=== PATIENT | male | born 1980 | race Caucasian/White ===

== ENCOUNTER → 2016-04-21 | Outpatient (CLI) | payer OTHER ==
--- NOTE | 2016-04-21 14:33 | REP ---
MRI LUMBAR SPINE WITHOUT WITH CONTRAST: 04/21/2016 Clinical history: Chronic low back pain. Technique: Sagittal T1, T2 and STIR images and T1 and T2 axial images provided. After infusion of 17 ml as of ProHance, sagittal fat suppressed T1 and axial standard T1 sequences performed. Comparison: I have report from MRI 08/15/[address] [facility]. The images did not come to this facility with the patient for this examination. Findings: The normal lordosis is maintained. Vertebral body heights and marrow signal are normal from at T12-S2. The disc space heights and disc water signal are maintained from T11-12 through L5-S1. Conus terminates in the upper half of L2. The T11-12, T12-L1, L1-2, L2-3 and L3-4 levels show no significant disc bulge or herniation and no spinal or foraminal stenosis. At L4-5, there is no significant disc bulge herniation and no spinal or foraminal stenosis. At L5-S1, there is minimal broad-based disc bulge extending into the foramen on the left more than right, but the cross-sectional area of the canal is ample and the foramina show no nerve root compression. Minor hypertrophic facet changes are noted at this level. After the contrast administration, there was no abnormal meningeal enhancement, abnormal cord enhancement, vertebral body or disc space. The phalanges are grossly intact. I do not see abnormal appearance on enhancement of the nerve roots with slightly asymmetrically larger right than left nerve root sleeve at lateral recess of L5-S1 compared to the left side at that level. There is no abnormal enhancement to suggest a mass. The finding may certainly reflect a conjoined nerve root. No abnormal enhancement. No paraspinal abnormality. Impression: 1. Minor degenerative disc changes as described above without significant spinal or foraminal stenosis at any level. 2. Slight asymmetry in appearance of the nerve roots at the lateral recess of L5-S1 on the right compared to the left. 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 There is certainly no abnormal enhancement in this region to suggest a mass such as schwannoma or other nerve root lesion. No other findings. Conus terminates at L2. Signed by Clinton Dunlap MD 04/21/2016 05:09 P
== END ==
LOC: M RAD 12:44
PROVIDERS: ATTEND Physician Assistant
DX: M54.5 Low back pain (principal)
CPT/HCPCS: 72158; A9576

== ENCOUNTER → 2016-06-10 | Outpatient (CLI) | payer OTHER ==
[~2016-06-10] MED LIST: METHACHOLINE KIT (J7674) INH ONE
--- NOTE | 2016-06-10 13:58 | PFTRPT ---
Age: 36 Sex: Male Race: Height: 68.75 Inches Weight: 204.00 Lbs BSA: 2.08 Diagnosis: R05 METHACHOLINE CHALLENGE REPORT: ORDERING PROVIDER: YANA Peck DATE OF SERVICE: 06/10/16 INTERPRETATION: The study was of excellent technical quality. Under protocol, methacholine was administered. At a dose of 2.5 mg (13.875 CDUs), a 24% decline in the FEV1 was noted. The PC20 of 1.17 is significant. Flow rates did return to baseline post bronchodilator administration. IMPRESSION: Positive methacholine challenge study. MTDD
== END ==
LOC: M CARPUL 07:27
PROVIDERS: ATTEND Nurse Practitioner Adult Health
DX: R94.2 Abnormal results of pulmonary function studies (principal)